=== PATIENT | male | born 1985 | race Caucasian/White ===

== ENCOUNTER 2016-12-26 08:13 | Emergency (ER) | payer MEDICAID ==
[~2016-12-26] VITALS: Wt 90.0 kg
[~2016-12-26 08:13] MED LIST: ACET325T33 PO; CEPH-443 PO; IBUP-1542 PO; IBUP400T22 PO; RANI150T9 PO; TRAM50TA2 PO
[2016-12-26] MEDS ORDERED: ACETAMINOPHEN 500 MG TAB PO STA (08:36)
--- NOTE | 2016-12-26 09:11 | RADRPT ---
PROCEDURE: XR Abdomen. CLINICAL INDICATION: Abdominal pain TECHNIQUE: Two AP views of the abdomen were obtained COMPARISON: None. FINDINGS: There is a nonobstructive bowel gas pattern. No abnormal soft tissue calcifications are seen. The v isualized portions of the lung bases are clear. The osseous structures are unremarkable. IMPRESSION: Unremarkable abdomen x-ray. RPTAT: HH .Ashely Bautista MD, MD Date Time Electronically viewed and signed by .Ashely Bautista MD, on 12/26/2016 09:10 .G/
[2016-12-26] MEDS ORDERED: ACET325T33 PO (09:17)
[2016-12-26] MEDS ORDERED: FAMO-18 PO (09:17)
--- NOTE | 2016-12-26 11:55 | ERD ---
DATE OF SERVICE: 12/26/2016 HISTORY OF PRESENT ILLNESS: The patient is a 31-year-old male complaining of generalized abdominal pain after eating. Patient states it comes and goes over the last 5 days. He has HAD a history of gastritis in the past, takes omeprazole. He has had no vomiting, no diarrhea, no fevers. His last normal bowel movement was earlier today. He states he is mildly constipated; however, there are no abnormalities in his stool, no blood. Denies any back pain, denies chest pain or shortness of tony th. PAST MEDICAL HISTORY: Denies. PAST SURGICAL HISTORY: Denies. SURGICAL HISTORY: Appendectomy. SOCIAL HISTORY: Denies. REVIEW OF SYSTEMS: A 12-point review of systems was done. Refer to HPI for positives, all other sy stems negative. PHYSICAL EXAMINATION: VITAL SIGNS: Temperature 98.4, pulse 79, blood pressure 150/81, respiratory rate 20, O2 saturation 100% on room air. Pain intensity 8/10. GENERAL: The patient is well-appearing, well-nourished, no acute distress. HEENT: Atraumatic. Conjunctivae are pink. Pupils equal, round, and reactive to light. There is no s cleral icterus. Tympanic membranes clear bilaterally. Oropharynx clear. No nystagmus or photophobia . CHEST: Clear to auscultation bilaterally. There are no rales, wheezes or rhonchi. HEART: Regular rate and rhythm. No murmurs, clicks, rubs or gallops. No S3 or S4. ABDOMEN: Soft, nontender and nondistended. Good bowel sounds. No rebound or guarding. No gross zaria tonitis. No gross organomegaly or masses. No Mayberry sign or McBurney point tenderness. No reproduci ble pain on palpation. The patient is able to jump up and down without difficulty. BACK: No midline or flank tenderness. SKIN: There is no apparent rash or petechia. The skin is warm and dry. EMERGENCY ROOM COURSE: The patient had a 1-view KUB done in the ER, given he has had a history of a bdominal surgery in the past. The KUB showed unremarkable abdominal x-ray. Patient was given Tyle nol in the ER. DIAGNOSIS: Generalized abdominal pain. MEDICAL DECISION MAKING: Patient's abdominal exam is nonconcerning. There is no reproducible pain on palpation of the abdomen. No distention, no organomegaly and no rigidity noted on exam. Patient is able to jump up and down. I do not feel that blood work or imaging was indicated at this time a s there were no abnormal findings on physical exam. Patient's vital signs are stable. The patient is nontoxic appearing. DISCHARGE: The patient is discharged stable. Patient given strict ER precautions. Patient was toby d to follow up with primary care within 1 to 2 days for reevaluation. The patient given prescriptio n for Pepcid and Tylenol and told to return to the ER if symptoms progress or worsen. All other que stions answered at time of discharge. Discharge summary given at the time of departure. Patient un derstood and complied with plan. Dictated By: RAYNA LEW for [place] CHANG/JOEL Conf#: [id number] DID#: [id number]
== END 2016-12-26 09:46 | disposition home or self-care (01) ==
LOC: FTE 08:13
DX: R10.84 Generalized abdominal pain (principal)
CPT/HCPCS: 74000; Z7502; Z7610

== ENCOUNTER 2017-07-06 01:23 | Emergency (ER) | END 2017-07-06 01:52 | disposition left against medical advice (07) | DX: Z53.21 Procedure and treatment not carried out due to patient leaving prior to being seen by health care provider (principal) ==

== ENCOUNTER 2017-10-30 23:26 | Emergency (ER) | payer SELFPAY ==
[~2017-10-30] VITALS: Ht 170.2 cm; Wt 97.0 kg
[~2017-10-30 23:26] MED LIST changes: +FAMO-96 PO
[2017-10-30 23:41] VITALS: Ht 170.2 cm; Wt 97.0 kg
[2017-10-31] MEDS ORDERED: PRED20TA PO (00:01)
[2017-10-31] MEDS ORDERED: AZIT250T94 PO (00:01)
--- NOTE | 2017-10-31 00:03 | ERD ---
ER Documentation Chief Complaint Chief Complaint ST WITH COUGH AND CONGESTION X 4 DAYS, DENIES FEVERS HPI 32-year-old male is here presenting complaining of 4 days of sore throat and cough and congestion. Symptoms are worse at night and sometimes he feels different phone call for her debris but he is tolerating oral intake. He has not had a fever. He has been taking Robitussin at home but it does not help. No nausea or vomiting. ROS All systems reviewed and are negative except as per history of present illness. Medications Home Meds Active Scripts Prednisone* (Prednisone*) 20 Mg Tab, 40 MG PO DAILY for 4 Days, TAB Prov:ANGE GERBER PA-C 10/31/17 Azithromycin* (Zithromax*) 250 Mg Tablet, 250 MG PO .JORGE DIRECTED, #6 TAB TAKE 500 MG (2 TABS) THE FIRST DAY THEN 250 MG (1 TAB) DAYS 2-5 Prov:ANGE GERBER PA-C 10/31/17 Acetaminophen* (Tylenol*) 325 Mg Tablet, 2 TAB PO Q8 Y for PAIN AND OR ELEVATED TEMP, #20 TAB Prov:ANH SANDS PA-C 12/26/16 Famotidine* (Pepcid*) 20 Mg Tablet, 20 MG PO BID for 4 Days, #30 TAB Prov:ANH SANDS PA-C 12/26/16 Acetaminophen* (Tylenol*) 325 Mg Tablet, 2 TAB PO Q8 Y for PAIN AND OR ELEVATED TEMP, #20 TAB Prov:RAKEL MORALES DO 07/26/16 Ibuprofen* (Motrin*) 600 Mg Tab, 600 MG PO Q8, #20 TAB Prov:RAKEL MORALES DO 07/26/16 Cephalexin* (Keflex*) 500 Mg Capsule, 500 MG PO QID for 5 Days, CAP Prov:CARMEN,RAKEL DO 07/26/16 Ibuprofen* (Motrin*) 400 Mg Tab, 400 MG PO Q6 for 7 Days, #30 TAB 0 Refills Prov:PRABHA SHEPARD PA-C 07/20/16 Ranitidine Hcl* (Zantac*) 150 Mg Tablet, 150 MG PO BID Y for EPIGASTRIC PAIN, # 30 TAB Prov:OSCAR TRIVEDI DO 04/17/16 Tramadol HCl (Tramadol HCl) 50 Mg Tablet, 50 MG PO Q4 Y for PAIN, #20 TAB Prov:OSCAR TRIVEDI DO 04/17/16 Allergies Allergies: Coded Allergies: Penicillins (Verified Allergy, Mild, 07/26/16) PMhx/Soc History of Surgery: Yes (appendectomy ) Anesthesia Reaction: No Hx Neurological Disorder: No Hx Respiratory Disorders: No Hx Cardiac Disorders: No Hx Psychiatric Problems: No Hx Miscellaneous Medical Probl: No Hx Alcohol Use: No Hx Substance Use: No Hx Tobacco Use: No Smoking Status: Never smoker FmHx Family History: No diabetes Physical Exam Vitals Vital Signs Date Time Temp Pulse Resp B/P Pulse Ox O2 Delivery O2 Flow Rate FiO2 10/30/17 23:41 96.6 83 20 137/76 96 Physical Exam INITIAL VITAL SIGNS: Reviewed by me GENERAL: Awake, alert and oriented x 4, well appearing, nontoxic, speaking in full sentences. No acute distress HEAD: Atraumatic NECK: Supple. No masses. Full range of motion. No meningismus. No midline tenderness. EYES: EOMI. PERRL. NOSE: Normal nose. THROAT: Bilateral tonsillar erythema and edema, no exudates, uvula midline no kissing tonsils RESPIRATORY: Clear to auscultation bilaterally. Symmetric chest wall rise. No wheezing or rales. No accessory muscle use. CV: Regular rate and rhythm. No murmurs, rubs, or gallops. Procedures/MDM Patient presents with pharyngitis. His tonsils are swollen and markedly erythematous. He is well-appearing otherwise in no distress. He is afebrile. He is from a course of prednisone as well as amoxicillin. Patient counseled regarding my diagnostic impression and care plan. Prior to discharge all questions answered. Pt agrees with treatment plan and understands strict return precautions. Pt is instructed to follow up with primary care provider within 24- 48 hours. Precautionary instructions provided including instructions to return to the ER if not improving or for any worsening or changing symptoms or concerns. Departure Diagnosis: Primary Impression: Pharyngitis Condition: Stable Patient Instructions: Pharyngitis, Strep (Presumed) Additional Instructions: Llame al doctor NORBERTO y sofie simona TATYANA PARA DENTRO DE 1-2 TAMAYO.Dgale a la secretaria que nosotros le instruimos hacer esta tatyana.Avise o llame si matson condicin se empeora antes de la tatyana. Regresa aqui si peor o no mejor. ANGE GERBER PA-C Oct 31, 2017 00:03
== END 2017-10-31 00:21 | disposition home or self-care (01) ==
LOC: FTE 23:26
DX: J02.9 Acute pharyngitis, unspecified (principal)
CPT/HCPCS: 99284

== ENCOUNTER 2018-05-17 12:23 | Emergency (ER) | END 2018-05-17 13:13 | disposition home or self-care (01) ==

== ENCOUNTER 2018-06-16 10:33 | Emergency (ER) | END 2018-06-16 11:43 | disposition home or self-care (01) ==

== ENCOUNTER 2018-06-20 03:17 | Emergency (ER) | END 2018-06-20 05:13 | disposition left against medical advice (07) ==

== ENCOUNTER 2018-10-24 09:27 | Emergency (ER) | END 2018-10-24 10:20 | disposition home or self-care (01) ==

== ENCOUNTER 2019-04-22 19:28 | Emergency (ER) | payer MEDICAID ==
[~2019-04-22] VITALS: Ht 170.2 cm; Wt 91.7 kg
[~2019-04-22 19:28] MED LIST changes: +AZIT250T PO; +BACL10TA PO; +CEPH500C PO; +DOXY100T20 PO; +FAMO40TA5 PO; +IBUP-1561 PO; -IBUP400T22 PO; +IBUP800T48 PO; +PRED20TA PO; +RANI150T35 PO; -RANI150T9 PO; +SULF1TAB31 PO
[2019-04-22 19:55] VITALS: Ht 170.2 cm; Wt 91.7 kg
[2019-04-22] MEDS ORDERED: KETOROLAC 60 MG INJ IM STA (20:50)
[2019-04-22] MEDS ORDERED: BUTA1CAP38 PO (21:36)
[2019-04-22] MEDS ORDERED: IBUP-1542 PO (21:36)
--- NOTE | 2019-04-22 21:37 | ERD ---
ER Documentation Chief Complaint Chief Complaint HEADACHE NO NEURODEFICIT WITH THROAT PAIN X1WEEK HPI 34-year-old male presents with posterior headache for last week. He also has neck pain radiating to his jaw. Denies any history of trauma or inciting events. Denies any fevers, cough, shortness with chest pain. Denies any deficits. ROS All systems reviewed and are negative except as per history of present illness. Medications Home Meds Active Scripts Ajlgweesyf-Rqhilyeftzpye-Kjibsrmo* (Fioricet*) 50-300-40 Mg Capsule, 1 CAP PO Q4H PRN for HEADACHE, #15 CAP Prov:ANGI ALVAREZ MD 04/22/19 Ibuprofen* (Motrin*) 600 Mg Tab, 600 MG PO Q6, #20 TAB Prov:ANGI ALVAREZ MD 04/22/19 Ibuprofen* (Motrin*) 600 Mg Tab, 600 MG PO Q8, #30 TAB Prov:ALICIA SHEIKH MD 12/27/18 Baclofen* (Baclofen*) 10 Mg Tablet, 10 MG PO QHS for 7 Days, #7 TAB Prov:ALICIA SHEIKH MD 12/27/18 Acetaminophen* (Tylenol*) 325 Mg Tablet, 2 TAB PO Q8 PRN for PAIN AND OR ELEVATED TEMP, #20 TAB Prov:ALICIA SHEIKH MD 12/27/18 Famotidine* (Famotidine*) 40 Mg Tablet, 40 MG PO BID, #60 TAB Prov:ANGE GERBER PA-C 10/24/18 Ibuprofen* (Motrin*) 800 Mg Tab, 800 MG PO Q6, #30 TAB Prov:ANGE GERBER PA-C 10/24/18 Sulfamethoxazole/Trimethoprim* (Bactrim Ds* Tablet) 1 Each Tablet, 1 TAB PO BID, #14 TAB Prov:ERIC ALEXANDER 06/16/18 Cephalexin* (Cephalexin*) 500 Mg Capsule, 500 MG PO BID, #14 CAP Prov:ERIC ALEXANDER 06/16/18 Ibuprofen* (Motrin*) 600 Mg Tab, 600 MG PO Q6, #30 TAB Prov:JANET OCHOA PA-C 05/17/18 Doxycycline Hyclate* (Doxycycline Hyclate*) 100 Mg Tablet.dr, 100 MG PO BID for 7 Days, TAB Prov:JANET OCHOA PA-C 05/17/18 Azithromycin* (Zithromax*) 250 Mg Tablet, 250 MG PO .JORGE DIRECTED, #6 TAB TAKE 500 MG (2 TABS) THE FIRST DAY THEN 250 MG (1 TAB) DAYS 2-5 Prov:DENIZ KUMAR-C 11/05/17 Prednisone* (Prednisone*) 20 Mg Tab, 40 MG PO DAILY for 4 Days, TAB Prov:ANGE GERBERC 10/31/17 Acetaminophen* (Tylenol*) 325 Mg Tablet, 2 TAB PO Q8 PRN for PAIN AND OR ELEVATED TEMP, #20 TAB Prov:ANH SANDSC 12/26/16 Famotidine* (Pepcid*) 20 Mg Tablet, 20 MG PO BID for 4 Days, #30 TAB Prov:ANH SANDSC 12/26/16 Acetaminophen* (Tylenol*) 325 Mg Tablet, 2 TAB PO Q8 PRN for PAIN AND OR ELEVATED TEMP, #20 TAB Prov:[facility] DO 07/26/16 Ibuprofen* (Motrin*) 600 Mg Tab, 600 MG PO Q8, #20 TAB Prov:[facility] DO 07/26/16 Cephalexin* (Keflex*) 500 Mg Capsule, 500 MG PO QID for 5 Days, CAP Prov:CARMEN,[facility] DO 07/26/16 Ibuprofen* (Motrin*) 400 Mg Tab, 400 MG PO Q6 for 7 Days, #30 TAB 0 Refills Prov:PRABHA SHEPARDC 07/20/16 Ranitidine Hcl* (Zantac*) 150 Mg Tablet, 150 MG PO BID PRN for EPIGASTRIC PAIN, #30 TAB Prov:OSCAR TRIVEDI DO 04/17/16 Tramadol HCl (Tramadol HCl) 50 Mg Tablet, 50 MG PO Q4 PRN for PAIN, #20 TAB Prov:LEKKOSAPOSTOLOS A. DO 04/17/16 Allergies Allergies: Coded Allergies: Penicillins (Verified Allergy, Mild, 07/26/16) amoxicillin (Verified Allergy, Unknown, 12/27/18) PMhx/Soc History of Surgery: Yes (appendectomy ) Anesthesia Reaction: No Hx Neurological Disorder: No Hx Respiratory Disorders: No Hx Cardiac Disorders: No Hx Psychiatric Problems: No Hx Miscellaneous Medical Probl: No Hx Alcohol Use: Yes (occassionally) Hx Substance Use: No Hx Tobacco Use: No Smoking Status: Never smoker Physical Exam Vitals Vital Signs Date Temp Pulse Resp B/P (MAP) Pulse Ox O2 O2 Flow FiO2 Time Delivery Rate 04/22/19 97.9 80 22 156/64 100 19:55 (94) Physical Exam Const: No acute distress Head: Atraumatic Eyes: Normal Conjunctiva ENT: Normal External Ears, Nose and Mouth. Neck: Full range of motion. No meningismus. Resp: Clear to auscultation bilaterally Cardio: Regular rate and rhythm, no murmurs Abd: Soft, non tender, non distended. Normal bowel sounds Skin: No petechiae or rashes Back: No midline or flank tenderness Ext: No cyanosis, or edema Neur: Awake and alert. No appreciable focal neurologic deficits. Normal gait. No cerebellar signs. Psych: Normal Mood and Affect Results 24 hrs Current Medications Medications Dose Sig/Adolfo Start Time Status Last (Trade) Ordered Route PRN Stop Time Admin Dose Reason Admin Ketorolac 60 mg ONCE STAT 04/22/19 DC 04/22/19 Tromethamine IM 20:50 21:02 (Toradol) 04/22/19 20:51 Procedures/MDM CT brain shows no acute abnormalities. Patient given Toradol 60 mg IM for pain. Patient presents with external headache of uncertain etiology without findings to suggest bleeding, meningitis, ADVERTISING PHOTOGRAPHER lesion, bleeding, fracture, additional concerning signs or symptoms. He will be treated with Fioricet, ibuprofen, primary care follow-up and return precautions. The patient was stable with no new complaints during the ER course. Clinically, there is no current evidence to suggest meningitis, sepsis, acute abdomen, pneumonia, stroke, acute coronary syndrome, pulmonary embolism, aortic dissection or any other emergent condition appearing to require further evaluation or hospitalization. Patient counseled regarding my diagnostic impression and care plan. Prior to discharge all questions answered. Pt agrees with treatment plan and understands strict return precautions. Pt is instructed to follow up with primary care provider within 24- 48 hours. Precautionary instructions provided including instructions to return to the ER if not improving or for any worsening or changing symptoms or concerns. Disclaimer: Inadvertent spelling and grammatical errors are likely due to EHR/dictation software use and do not reflect on the overall quality of patient care. Also, please note that the electronic time recorded on this note does not necessarily reflect the actual time of the patient encounter. Departure Diagnosis: Primary Impression: Headache Headache type: unspecified Headache chronicity pattern: unspecified pa ttern Intractability: not intractable Qualified Codes: R51 - Headache Condition: Stable Patient Instructions: Headache, Unspecified Referrals: NO PRIMARY,CARE PHYSICIAN (PCP) [facility] ([facility]) Usted se chadwick hecho un examen mdico de control que le indica que no est en simona condicin que requiera tratamiento urgente en el Departamento de Emergencia. Un estudio ms profundo y el tratamiento de matson condicin pueden esperar sin ningn riesgo hasta que usted sea atendida/o en el consultorio de matson mdico o simona clnica. Es responsabilidad suya arreglar simona preston para el seguimiento del claudine. MANEJO DE CONDICIONES NO URGENTES EN EL FUTURO 1) Si usted tiene un mdico de atencin primaria: Usted debera llamar a matson mdico de atencin primaria antes de venir al departamento de emergencia. Despus de las horas de consultorio, matson doctor o matson asociado/a est disponible por telfono. El mdico o enfermero de nina en el servicio telefnico puede asesorarle por fatoumata medio para atender el problema, o claudine contrario se puede programar simona preston. 2) Si usted no tiene un mdico de atencin primaria: Llame al mdico o clnica de referencia que aparece abajo jordy las horas de consultorio para hacer simona preston para que le vean. CLINICAS: [facility] 351 [phone] [address] [facility] 363 [phone] [address] [facility] 136 [phone] [facility] [phone] [facility] [phone] [address] [facility]. [phone] [address] Additional Instructions: ct normal. Examines normal hoy. Cheque otro vez con matson doctor primario en el proximo bone or regresa para mas o nueva simptomas. ANGI ALVAREZ MD April 22, 2019 21:37
[2019-04-22 22:40] VITALS: BP 121/83; PULSE 77; RESP 18
== END 2019-04-22 22:43 | disposition home or self-care (01) ==
LOC: FTE 19:28
DX: R51 Headache (principal)
CPT/HCPCS: 70450; 82962; J1885; 96372

== ENCOUNTER 2019-05-01 02:00 | Emergency (ER) | payer SELFPAY ==
[~2019-05-01] VITALS: Ht 167.6 cm; Wt 88.7 kg
[~2019-05-01 02:00] MED LIST changes: +BUTA1CAP38 PO
[2019-05-01 02:02] VITALS: BP 129/75; PULSE 82; RESP 18; Ht 167.6 cm; Wt 88.7 kg
[2019-05-01] MEDS ORDERED: D-ME118S24 PO (02:50)
[2019-05-01] MEDS ORDERED: ALBU18HF INHALATION (02:50)
[2019-05-01] MEDS ORDERED: IBUP-1561 PO (02:52)
--- NOTE | 2019-05-01 02:55 | ERD ---
ER Documentation Chief Complaint Chief Complaint SOB, ST X'S 3 DAYS HPI 34-year-old male no significant past medical history presents for sore throat and cough x3 days. He also states that he has some mild shortness of breath with the coughing. He admits to runny nose. Denies any fevers or chills. Denies any chest pain. Denies abdominal pain, nausea, vomiting. No other modifying factors noted. No treatments tried at home. ROS All systems reviewed and are negative except as per history of present illness. Medications Home Meds Active Scripts Ibuprofen* (Motrin*) 400 Mg Tab, 400 MG PO Q6H PRN for PAIN AND OR ELEVATED TEMP, #30 TAB Prov:CORI GORE DO 05/01/19 Albuterol Sulfate* (Ventolin HFA*) 18 Gm Hfa.aer.ad, 2 PUFF INHALATION Q4H PRN for SHORTNESS OF BREATH, #1 INHALER Prov:CORI GORE DO 05/01/19 D-Methorphan Hb/P-Epd HCl/Bpm (Qckanonzwo-Rgtklyrjtyz-Dk Syr) 118 Ml Syrup, 5 ML PO Q4H PRN for COUGH for 10 Days, #1 BOTTLE Prov:CORI GORE DO 05/01/19 Ogmrqslbfk-Pkxqkbqiwxfmk-Bvtpbcgo* (Fioricet*) 50-300-40 Mg Capsule, 1 CAP PO Q4H PRN for HEADACHE, #15 CAP Prov:ANGI ALVAREZ MD 04/22/19 Ibuprofen* (Motrin*) 600 Mg Tab, 600 MG PO Q6, #20 TAB Prov:ANGI ALVAREZ MD 04/22/19 Ibuprofen* (Motrin*) 600 Mg Tab, 600 MG PO Q8, #30 TAB Prov:ALICIA SHEIKH MD 12/27/18 Baclofen* (Baclofen*) 10 Mg Tablet, 10 MG PO QHS for 7 Days, #7 TAB Prov:ALICIA SHEIKH MD 12/27/18 Acetaminophen* (Tylenol*) 325 Mg Tablet, 2 TAB PO Q8 PRN for PAIN AND OR ELEVATED TEMP, #20 TAB Prov:ALICIA SHEIKH MD 12/27/18 Famotidine* (Famotidine*) 40 Mg Tablet, 40 MG PO BID, #60 TAB Prov:ANGE GERBERC 10/24/18 Ibuprofen* (Motrin*) 800 Mg Tab, 800 MG PO Q6, #30 TAB Prov:ANGE GERBERC 10/24/18 Sulfamethoxazole/Trimethoprim* (Bactrim Ds* Tablet) 1 Each Tablet, 1 TAB PO BID, #14 TAB Prov:ERIC ALEXANDER 06/16/18 Cephalexin* (Cephalexin*) 500 Mg Capsule, 500 MG PO BID, #14 CAP Prov:ERIC ALEXANDER 06/16/18 Ibuprofen* (Motrin*) 600 Mg Tab, 600 MG PO Q6, #30 TAB Prov:JANET OCHOA-C 05/17/18 Doxycycline Hyclate* (Doxycycline Hyclate*) 100 Mg Tablet.dr, 100 MG PO BID for 7 Days, TAB Prov:JANET OCHOA-C 05/17/18 Azithromycin* (Zithromax*) 250 Mg Tablet, 250 MG PO .JORGE DIRECTED, #6 TAB TAKE 500 MG (2 TABS) THE FIRST DAY THEN 250 MG (1 TAB) DAYS 2-5 Prov:DENIZ KUMARC 11/05/17 Prednisone* (Prednisone*) 20 Mg Tab, 40 MG PO DAILY for 4 Days, TAB Prov:NAGE GERBERC 10/31/17 Acetaminophen* (Tylenol*) 325 Mg Tablet, 2 TAB PO Q8 PRN for PAIN AND OR ELEVATED TEMP, #20 TAB Prov:ANH SANDSC 12/26/16 Famotidine* (Pepcid*) 20 Mg Tablet, 20 MG PO BID for 4 Days, #30 TAB Prov:ANH SANDSC 12/26/16 Acetaminophen* (Tylenol*) 325 Mg Tablet, 2 TAB PO Q8 PRN for PAIN AND OR ELEVATED TEMP, #20 TAB Prov:RAKEL MORALES DO 07/26/16 Ibuprofen* (Motrin*) 600 Mg Tab, 600 MG PO Q8, #20 TAB Prov:RAKEL MORALES DO 07/26/16 Cephalexin* (Keflex*) 500 Mg Capsule, 500 MG PO QID for 5 Days, CAP Prov:RAKEL MORALES DO 07/26/16 Ibuprofen* (Motrin*) 400 Mg Tab, 400 MG PO Q6 for 7 Days, #30 TAB 0 Refills Prov:PRABHA SHEPARD PA-C 07/20/16 Ranitidine Hcl* (Zantac*) 150 Mg Tablet, 150 MG PO BID PRN for EPIGASTRIC PAIN, #30 TAB Prov:OSCAR TRIVEDIJosie DO 04/17/16 Tramadol HCl (Tramadol HCl) 50 Mg Tablet, 50 MG PO Q4 PRN for PAIN, #20 TAB Prov:OSCAR TRIVEDI. DO 04/17/16 Allergies Allergies: Coded Allergies: Penicillins (Verified Allergy, Mild, 07/26/16) amoxicillin (Verified Allergy, Unknown, 12/27/18) PMhx/Soc Medical and Surgical Hx: pt denies Medical Hx History of Surgery: Yes (appendectomy ) Anesthesia Reaction: No Hx Neurological Disorder: No Hx Respiratory Disorders: No Hx Cardiac Disorders: No Hx Psychiatric Problems: No Hx Miscellaneous Medical Probl: No Hx Alcohol Use: Yes (occassionally) Hx Substance Use: No Hx Tobacco Use: No Smoking Status: Never smoker FmHx Family History: No coronary disease Physical Exam Vitals Vital Signs Date Temp Pulse Resp B/P (MAP) Pulse Ox O2 O2 Flow FiO2 Time Delivery Rate 05/01/19 98.6 82 18 129/75 97 02:02 (93) Physical Exam Const: No acute distress Head: Atraumatic Eyes: Normal Conjunctiva ENT: Normal External Ears, bilateral tympanic membrane intact without erythema or bulging noted, nose and Mouth examination normal, no tonsillar swelling or exudate noted Neck: Full range of motion. No meningismus. Resp: Clear to auscultation bilaterally, no wheezing, rales, rhonchi Cardio: Regular rate and rhythm, no murmurs Skin: No petechiae or rashes Ext: No cyanosis, or edema Neur: Awake and alert Psych: Normal Mood and Affect Procedures/MDM Medical Decision Making: Differential diagnosis includes but not limited to upper respiratory infection, pneumonia, sepsis, meningitis, influenza. Patient appeared well on physical examination, nontoxic appearing. Lungs were clear to auscultation bilaterally. There is low suspicion for pneumonia, sepsis, meningitis. Patient likely has an upper respiratory infection, likely viral. Therefore antibiotics not indicated. Discussed symptomatic treatment with patient who agrees with plan. Patient given prescription for supportive medication(s). Patient advised to follow up with PCP in 1-2 days. Patient advised to return to ED for new or worsening symptoms. Patient stable on discharge from the ED. Disclaimer: Inadvertent spelling and grammatical errors are likely due to EHR/dictation software use and do not reflect on the overall quality of patient care. Also, please note that the electronic time recorded on this note does not necessarily reflect the actual time of the patient encounter. Departure Diagnosis: Primary Impression: Cough Condition: Fair Patient Instructions: Preventing Common Respiratory Infections Referrals: [facility] YOU HAVE RECEIVED A MEDICAL SCREENING EXAM AND THE RESULTS INDICATE THAT YOU DO NOT HAVE A CONDITION THAT REQUIRES URGENT TREATMENT IN THE EMERGENCY DEPARTMENT. FURTHER EVALUATION AND TREATMENT OF YOUR CONDITION CAN WAIT UNTIL YOU ARE SEEN IN YOUR DOCTORS OFFICE WITHIN THE NEXT 1-2 DAYS. IT IS YOUR RESPONSIBILITY TO MAKE AN APPOINTMENT FOR FOLOW-UP CARE. IF YOU HAVE A PRIMARY DOCTOR --you should call your primary doctor and schedule an appointment IF YOU DO NOT HAVE A PRIMARY DOCTOR YOU CAN CALL OUR PHYSICIAN REFERRAL HOTLINE AT IF YOU CAN NOT AFFORD TO SEE A PHYSICIAN YOU CAN CHOSE FROM THE FOLLOWING [facility] [address] [facility]. [facility] [address] [facility]. [facility] [address] [facility] [address] [facility]. [facility] [address] [facility]. [facility]. [address] Additional Instructions: Llame al doctor MAANA y sofie simona TATYANA PARA DENTRO DE 1-2 TAMAYO.Dgale a la secretaria que nosotros le instruimos hacer esta tatyana.Avise o llame si matson condicin se empeora antes de la tatyana. Regresa aqui si peor o no mejor. CORI GORE DO May 01, 2019 02:54
== END 2019-05-01 03:20 | disposition home or self-care (01) ==
LOC: FTE 02:00
DX: R05 Cough (principal)
CPT/HCPCS: 99283

== ENCOUNTER 2019-06-25 20:16 | Emergency (ER) | payer SELFPAY ==
[~2019-06-25] VITALS: Ht 170.2 cm; Wt 90.4 kg
[~2019-06-25 20:16] MED LIST changes: +ALBU18HF INHALATION; +D-ME118S24 PO
[2019-06-25 20:22] VITALS: BP 134/71; PULSE 71; RESP 18; Ht 170.2 cm; Wt 90.4 kg
== END 2019-06-25 20:30 | disposition left against medical advice (07) ==
LOC: FTE 20:16
DX: Z53.21 Procedure and treatment not carried out due to patient leaving prior to being seen by health care provider (principal)